=== PATIENT | female | born 1930 | race Native Hawaiian/Other Pacific Islander ===

== ENCOUNTER → 2017-04-17 12:56 | Outpatient (CLI) | payer OTHER | END | disposition short-term general hospital (02) | LOC: AMB 12:56 | DX: R51 Headache (principal); R53.81 Other malaise ==

== ENCOUNTER 2019-03-15 16:38 | Outpatient (CLI) | payer OTHER, BC | END 2019-03-15 17:17 | disposition short-term general hospital (02) | LOC: AMB 16:38 | DX: R10.10 Upper abdominal pain, unspecified (principal); R11.0 Nausea; R07.89 Other chest pain; R42 Dizziness and giddiness | CPT/HCPCS: A0425; A0427 ==

== ENCOUNTER 2020-05-15 18:40 | Emergency (ER) | payer OTHER, BC ==
[~2020-05-15] VITALS: Ht 162.6 cm; Wt 108.9 kg
[2020-05-15 19:29] LABS: PLATELET COUNT 169 K/uL (152-353)
[2020-05-15 19:30] LABS: POTASSIUM 4.1 mmol/L (3.6-5.2)
[2020-05-15 19:32] LABS: PARTIAL THROMBOPLASTIN TIME 18.9 SECONDS (24.5-33.6)
[2020-05-15 20:05] VITALS: BP 191/74; TEMP 98.5
== END 2020-05-15 20:05 | disposition short-term general hospital (02) ==
LOC: ED 18:40
PROVIDERS: Family Medicine
PROC: 0T9B70Z Drainage of Bladder with Drainage Device, Via Natural or Artificial Opening (ICD-10-PCS; principal; 2020-05-15)
DX: I63.512 Cerebral infarction due to unspecified occlusion or stenosis of left middle cerebral artery (principal); Z79.82 Long term (current) use of aspirin; W18.39XA Other fall on same level, initial encounter; Y92.098 Other place in other non-institutional residence as the place of occurrence of the external cause
CPT/HCPCS: 36415; 36600; 51702; 80053; 82550; 82553; 82805; 84484; 85027; 85610; 85730; 96360; 99285